=== PATIENT | male | born 1965 | race African-American/Black ===

== ENCOUNTER 2016-10-23 08:19 | Outpatient (CLI) | payer MEDICARE, MEDICAID ==
[~2016-10-23] VITALS: Ht 185.4 cm; Wt 105.0 kg
[2016-10-23] VITALS (8 sets, daily range): BP systolic 116–136; BP diastolic 67–82; PULSE 54–66; TEMP 98.1
[~2016-10-23 08:19] MED LIST: ASPIRIN 81M81 MG/TA2 PO; ASPIRIN E.C. 8181 MG PO; CATAPRES 0.1MG0.1 MG PO; FERROUS SU325 MG/TAB PO; FLEXERIL 1010 MG/TAB PO; FOLIC ACID 11 MG/TA1 PO; KLOR-CON M2020 MEQ PO; LANTUS100 U/ML SC; LASIX 40MG TABL40 MG PO; LASIX 80MG TABL80 MG PO; LIPITOR 80MG80 MG PO; NEPHROCAP PO; NITROSTAT0.4 MG/TAB SL; NORVASC 10MG10 MG PO; NORVASC 5MG5 MG/TAB PO; PERCOCET 325 MG1 TA2 PO; PLAVIX 75MG TAB75 MG PO; RENVELA800 MG PO; SENSIPAR60 MG PO; SODIUM BICARBO650 MG PO; TOPROL XL100 MG PO; TRIPHROCAPS SOFT1 MG PO; TYLENOL 500MG500 MG PO; ULTRAM 50MG TAB50 MG PO; VITAMIN C500 MG PO; VITAMIN D31000 IU PO; ZAROXOLYN 2.52.5 MG PO; ZEMPLAR2 MCG PO
[2016-10-23] MEDS ORDERED: AURYXIA1 GM PO (09:18)
[2016-10-23] MEDS ORDERED: PHOS LO PO (09:33)
[2016-10-23] MEDS ORDERED: ZESTRIL2.5 MG PO (09:34)
[2016-10-23] MEDS ORDERED: COREG 3.123.125 MG/T PO (09:35)
== END 2016-10-23 12:40 | disposition home or self-care (01) ==
LOC: EUO 08:19
DX: N18.6 End stage renal disease (principal); T82.838A Hemorrhage due to vascular prosthetic devices, implants and grafts, initial encounter; I82.611 Acute embolism and thrombosis of superficial veins of right upper extremity; I10 Essential (primary) hypertension; I25.10 Atherosclerotic heart disease of native coronary artery without angina pectoris; Z99.2 Dependence on renal dialysis
CPT/HCPCS: J2250; J3010; Q9967

== ENCOUNTER 2016-10-29 05:32 | Inpatient (IN) | payer MEDICARE, MEDICAID ==
[~2016-10-29] VITALS: Ht 185.4 cm; Wt 116.3 kg
[~2016-10-29 05:32] MED LIST changes: +AURYXIA1 GM PO; +COREG 3.123.125 MG/T PO; +PHOS LO PO; +ZESTRIL2.5 MG PO
[2016-10-29 08:26] VITALS: BP 115/64; PULSE 58; TEMP 97.8
[2016-10-29 08:41] VITALS: BP 115/64; PULSE 58; TEMP 97.8
[2016-10-29 10:06] LABS: BASO % 1.1 % (0.0-2.0); EOS # 0.1 (0.0-0.7); EOS % 2.7 % (0-4.0); GRAN # 2.2 (1.4-6.5); GRAN % 60.3 % (42.2-75.2); HEMOGLOBIN 9.3 g/dl (13.5-18.0); LYMPH # 1.1 (1.2-3.4); MEAN CELL VOLUME 100 fl (80.0-100.0); MEAN CORPUSCULAR HEMOGLOBIN 32 pg (27.0-31.0); MEAN CORPUSCULAR HGB CONC 32 g/dl (33.0-37.0); MEAN PLATELET VOLUME 9.8 fl (7.4-10.4); MONO # 0.2 (0.1-0.6); MONO % 4.9 % (1.7-9.3); PLATELET COUNT 126 K/mm3 (130-400); RED BLOOD COUNT 2.89 M/mm3 (4.20-5.60); REDCELL DISTRIBUTION WIDTH-CV 13.9 % (11.5-14.5); WHITE BLOOD COUNT 3.7 K/mm3 (4.8-10.8)
[2016-10-29 10:20] LABS: CALCIUM 7.4 mg/dL (8.4-10.2); POTASSIUM 4.2 mmol/L (3.4-5.0)
[2016-10-29 10:22] LABS: CREATININE, serum 8.38 mg/dL (0.66-1.25)
[2016-10-29 11:23] VITALS: BP 130/51; PULSE 77; TEMP 98.6
[2016-10-29 15:40] VITALS: BP 135/71; PULSE 72; TEMP 98.3
[2016-10-29 19:41] VITALS: BP 119/58; PULSE 69; TEMP 98.6
[2016-10-30] VITALS (14 sets, daily range): BP systolic 117–144; BP diastolic 58–79; PULSE 54–73; TEMP 97.9–98.2
[2016-10-30 06:40] LABS: MEAN CELL VOLUME 102 fl (80.0-100.0); MEAN CORPUSCULAR HGB CONC 32 g/dl (33.0-37.0); MEAN PLATELET VOLUME 9.8 fl (7.4-10.4); PLATELET COUNT 129 K/mm3 (130-400); RED BLOOD COUNT 2.83 M/mm3 (4.20-5.60); REDCELL DISTRIBUTION WIDTH-CV 13.8 % (11.5-14.5); WHITE BLOOD COUNT 3.5 K/mm3 (4.8-10.8)
[2016-10-30 06:41] LABS: HEMATOCRIT 28.8 % (42.0-52.0); HEMOGLOBIN 9.2 g/dl (13.5-18.0); MEAN CORPUSCULAR HEMOGLOBIN 33 pg (27.0-31.0)
[2016-10-30 06:51] LABS: PROTHROMBIN TIME 10.8 SECONDS (9.7-12.8)
[2016-10-30 06:52] LABS: POTASSIUM 4.1 mmol/L (3.4-5.0)
[2016-10-30 06:54] LABS: PARTIAL THROMBOPLASTIN TIME 32.4 SECONDS (26.0-37.0)
[2016-10-30 06:56] LABS: CREATININE, serum 7.85 mg/dL (0.66-1.25)
[2016-10-31 03:43] VITALS: BP 134/76; PULSE 70; TEMP 98.3
[2016-10-31 06:55] LABS: BASO % 0.6 % (0.0-2.0); EOS # 0.1 (0.0-0.7); EOS % 2.3 % (0-4.0); GRAN # 3.3 (1.4-6.5); GRAN % 69.5 % (42.2-75.2); LYMPH # 0.9 (1.2-3.4); LYMPH % 19.1 % (20.0-51.0); MEAN CELL VOLUME 102 fl (80.0-100.0); MEAN CORPUSCULAR HGB CONC 32 g/dl (33.0-37.0); MEAN PLATELET VOLUME 10.1 fl (7.4-10.4); MONO # 0.4 (0.1-0.6); MONO % 8.3 % (1.7-9.3); PLATELET COUNT 152 K/mm3 (130-400); RED BLOOD COUNT 3.14 M/mm3 (4.20-5.60); REDCELL DISTRIBUTION WIDTH-CV 13.9 % (11.5-14.5); WHITE BLOOD COUNT 4.8 K/mm3 (4.8-10.8)
[2016-10-31 07:01] LABS: HEMATOCRIT 31.9 % (42.0-52.0); HEMOGLOBIN 10.2 g/dl (13.5-18.0); MEAN CORPUSCULAR HEMOGLOBIN 32 pg (27.0-31.0)
[2016-10-31 07:11] LABS: CALCIUM 7.6 mg/dL (8.4-10.2); POTASSIUM 4.5 mmol/L (3.4-5.0)
[2016-10-31 07:14] LABS: CREATININE, serum 9.98 mg/dL (0.66-1.25)
[2016-10-31 12:10] VITALS: BP 144/81; PULSE 61; TEMP 98.6
== END 2016-10-31 12:45 | disposition home or self-care (01) | DRG 286 ==
LOC: MEDICAL 05:32
PROVIDERS: Internal Medicine; Internal Medicine Interventional Cardiology
PROC: 5A1D60Z (ICD-10-PCS; 2016-10-29)
PROC: B2111ZZ Fluoroscopy of Multiple Coronary Arteries using Low Osmolar Contrast (ICD-10-PCS; principal; 2016-10-30)
PROC: B2151ZZ Fluoroscopy of Left Heart using Low Osmolar Contrast (ICD-10-PCS; 2016-10-30)
DX: R07.89 Other chest pain (principal); N18.6 End stage renal disease; I12.0 Hypertensive chronic kidney disease with stage 5 chronic kidney disease or end stage renal disease; I25.10 Atherosclerotic heart disease of native coronary artery without angina pectoris; E11.22 Type 2 diabetes mellitus with diabetic chronic kidney disease; Z99.2 Dependence on renal dialysis; Z95.5 Presence of coronary angioplasty implant and graft; E83.39 Other disorders of phosphorus metabolism; D63.1 Anemia in chronic kidney disease; E11.42 Type 2 diabetes mellitus with diabetic polyneuropathy; Z98.84 Bariatric surgery status; Z95.1 Presence of aortocoronary bypass graft
CPT/HCPCS: C1760; C1769; C1887; C1894; J0882; J1644; J2250; J3010; Q9967

== ENCOUNTER → 2017-12-23 | Emergency (ER) | payer MEDICARE, MEDICAID ==
[~2017-12-23] VITALS: Ht 185.4 cm; Wt 109.1 kg
[2017-12-23 07:05] VITALS: BP 157/76; PULSE 59; TEMP 98.8
== END ==
LOC: COL.ER 06:58
DX: S06.0X9A Concussion with loss of consciousness of unspecified duration, initial encounter (principal); S60.221A Contusion of right hand, initial encounter; S80.01XA Contusion of right knee, initial encounter; I12.9 Hypertensive chronic kidney disease with stage 1 through stage 4 chronic kidney disease, or unspecified chronic kidney disease; E11.22 Type 2 diabetes mellitus with diabetic chronic kidney disease; N18.9 Chronic kidney disease, unspecified; Z99.2 Dependence on renal dialysis; Z79.82 Long term (current) use of aspirin; W22.8XXA Striking against or struck by other objects, initial encounter; W18.30XA Fall on same level, unspecified, initial encounter; Y92.009 Unspecified place in unspecified non-institutional (private) residence as the place of occurrence of the external cause

== ENCOUNTER 2018-01-15 03:59 | Emergency (ER) | payer MEDICARE, MEDICAID ==
[~2018-01-15] VITALS: Ht 185.4 cm; Wt 109.1 kg
[2018-01-15 04:03] VITALS: TEMP 98.8
[2018-01-15] MEDS ORDERED: CELEBREX 200MG200 MG PO (04:48)
[2018-01-15] MEDS ORDERED: NEURONTIN300 MG/CAP PO (04:48)
[2018-01-15] MEDS ORDERED: PHOS LO (04:49)
[2018-01-15] MEDS ORDERED: LIPITOR 80MG80 MG PO (04:49)
[2018-01-15 06:55] VITALS: BP 129/72; PULSE 70
== END 2018-01-15 07:15 | disposition home or self-care (01) ==
LOC: COL.ER 03:59
DX: R04.0 Epistaxis (principal); E11.22 Type 2 diabetes mellitus with diabetic chronic kidney disease; I12.0 Hypertensive chronic kidney disease with stage 5 chronic kidney disease or end stage renal disease; N18.6 End stage renal disease; E78.5 Hyperlipidemia, unspecified; Z95.1 Presence of aortocoronary bypass graft; Z79.02 Long term (current) use of antithrombotics/antiplatelets; Z79.82 Long term (current) use of aspirin

== ENCOUNTER 2018-01-18 12:15 | Emergency (ER) | payer MEDICARE, MEDICAID ==
[~2018-01-18] VITALS: Ht 185.4 cm; Wt 104.0 kg
[~2018-01-18 12:15] MED LIST changes: +CELEBREX 200MG200 MG PO; +NEURONTIN300 MG/CAP PO; +PHOS LO
[2018-01-18 12:21] VITALS: BP 135/69; TEMP 99.4
[2018-01-18 13:11] LABS: BASO % 0.6 % (0.0-2.0); EOS # 0.1 (0.0-0.7); EOS % 1.4 % (0-4.0); GRAN # 5.2 (1.4-6.5); GRAN % 74.2 % (42.2-75.2); LYMPH # 0.8 (1.2-3.4); LYMPH % 11.6 % (20.0-51.0); MEAN CELL VOLUME 102 fl (80.0-100.0); MEAN CORPUSCULAR HGB CONC 33 g/dl (33.0-37.0); MEAN PLATELET VOLUME 9.6 fl (7.4-10.4); MONO # 0.8 (0.1-0.6); MONO % 11.8 % (1.7-9.3); PLATELET COUNT 238 K/mm3 (130-400); REDCELL DISTRIBUTION WIDTH-CV 13.5 % (11.5-14.5)
[2018-01-18 13:12] LABS: HEMATOCRIT 27.6 % (42.0-52.0); MEAN CORPUSCULAR HEMOGLOBIN 33 pg (27.0-31.0)
[2018-01-18 13:13] LABS: INR 1.1 (0.8-3.0)
[2018-01-18 13:15] LABS: PARTIAL THROMBOPLASTIN TIME 36.2 SECONDS (26.0-37.0)
[2018-01-18 13:17] LABS: ALBUMIN 3.9 gm/dL (3.5-5.0); CALCIUM 7.8 mg/dL (8.4-10.2); POTASSIUM 4.1 mmol/L (3.4-5.0); TOTAL PROTEIN 7.4 gm/dL (6.4-8.2)
[2018-01-18 13:27] LABS: CREATININE, serum 4.63 mg/dL (0.66-1.25)
[2018-01-18 13:29] LABS: TROPONIN-I 0.018 ng/mL (0.000-0.034)
[2018-01-18] MEDS ORDERED: PROTONIX 40MG T40 MG PO (14:33)
[2018-01-18 14:45] VITALS: PULSE 76
== END 2018-01-18 14:45 | disposition home or self-care (01) ==
LOC: COL.ER 12:15
PROVIDERS: Emergency Medicine
DX: K29.70 Gastritis, unspecified, without bleeding (principal); I12.0 Hypertensive chronic kidney disease with stage 5 chronic kidney disease or end stage renal disease; E11.22 Type 2 diabetes mellitus with diabetic chronic kidney disease; N18.6 End stage renal disease; I25.10 Atherosclerotic heart disease of native coronary artery without angina pectoris; K21.9 Gastro-esophageal reflux disease without esophagitis; Z99.2 Dependence on renal dialysis; Z79.82 Long term (current) use of aspirin; Z79.02 Long term (current) use of antithrombotics/antiplatelets; Z95.5 Presence of coronary angioplasty implant and graft; Z90.49 Acquired absence of other specified parts of digestive tract; Z88.7 Allergy status to serum and vaccine

== ENCOUNTER 2018-11-24 16:05 | Emergency (ER) | payer MEDICARE, MEDICAID ==
[~2018-11-24] VITALS: Ht 185.4 cm; Wt 111.4 kg
[2018-11-24 16:35] LABS: BASO % 0.7 % (0.0-2.0); EOS # 0.1 (0.0-0.7); EOS % 2.4 % (0-4.0); GRAN # 2.4 (1.4-6.5); GRAN % 54.2 % (42.2-75.2); HEMOGLOBIN 11.3 g/dl (13.5-18.0); LYMPH # 1.2 (1.2-3.4); LYMPH % 27.6 % (20.0-51.0); MEAN CELL VOLUME 103 fl (80.0-100.0); MEAN CORPUSCULAR HEMOGLOBIN 33 pg (27.0-31.0); MEAN CORPUSCULAR HGB CONC 32 g/dl (33.0-37.0); MEAN PLATELET VOLUME 8.6 fl (7.4-10.4); MONO # 0.7 (0.1-0.6); MONO % 14.9 % (1.7-9.3); PLATELET COUNT 165 K/mm3 (130-400); RED BLOOD COUNT 3.41 M/mm3 (4.20-5.60); REDCELL DISTRIBUTION WIDTH-CV 15.1 % (11.5-14.5)
[2018-11-24 16:44] LABS: HEMATOCRIT 35.2 % (42.0-52.0)
[2018-11-24 16:48] LABS: ALANINE AMINOTRANSFERASE 11 U/L (21-72); ALBUMIN 4.2 gm/dL (3.5-5.0); ALKALINE PHOSPHATASE 65 U/L (50-136); ANION GAP 10 mmol/L (7-16); AST,SGOT 21 U/L (15-37); BILIRUBIN,TOTAL 0.8 mg/dL (0.0-1.0); BLOOD UREA NITROGEN 15 mg/dL (9-20); CALCIUM 9.5 mg/dL (8.4-10.2); CARBON DIOXIDE 37 mmol/L (22-30); CHLORIDE 90 mmol/L (98-107); GLUCOSE 205 mg/dL (74-106); LIPASE 315 U/L (23-300); SODIUM 137 mmol/L (137-145); TOTAL PROTEIN 7.5 gm/dL (6.4-8.2)
[2018-11-24 16:54] LABS: C-REACTIVE PROTEIN < 0.5 mg/dL (0.0-0.9); CREATININE, serum 6.04 (0.66-1.25)
[2018-11-24 16:57] LABS: TROPONIN-I 0.034 ng/mL (0.000-0.035)
[2018-11-24 17:18] VITALS: BP 144/79; PULSE 73; TEMP 98.2
== END 2018-11-24 17:28 | disposition home or self-care (01) ==
LOC: COL.ER 16:05
PROVIDERS: Emergency Medicine
DX: R07.89 Other chest pain (principal); I12.9 Hypertensive chronic kidney disease with stage 1 through stage 4 chronic kidney disease, or unspecified chronic kidney disease; N18.9 Chronic kidney disease, unspecified; Z98.84 Bariatric surgery status; Z90.49 Acquired absence of other specified parts of digestive tract; Z99.2 Dependence on renal dialysis; Z79.82 Long term (current) use of aspirin; Z79.02 Long term (current) use of antithrombotics/antiplatelets

== ENCOUNTER → 2018-11-24 | Outpatient (CLI) | payer MEDICARE, MEDICAID ==
[~2018-11-24] MED LIST changes: +PROTONIX 40MG T40 MG PO
== END ==
LOC: ZCOL.LAB 16:33
DX: E11.9 Type 2 diabetes mellitus without complications (principal); N48.9 Disorder of penis, unspecified

== ENCOUNTER 2019-03-01 02:51 | Observation (INO) | payer MEDICARE ==
[~2019-03-01] VITALS: Ht 185.4 cm; Wt 115.2 kg
[2019-03-01 03:17] LABS: BASO % 0.8 % (0.0-2.0); EOS # 0.1 (0.0-0.7); EOS % 2.1 % (0-4.0); GRAN # 3.5 (1.4-6.5); LYMPH % 19.3 % (20.0-51.0); MEAN CELL VOLUME 105 fl (80.0-100.0); MEAN CORPUSCULAR HGB CONC 32 g/dl (33.0-37.0); MEAN PLATELET VOLUME 9.5 fl (7.4-10.4); MONO # 0.6 (0.1-0.6); MONO % 11.4 % (1.7-9.3); PLATELET COUNT 172 K/mm3 (130-400); RED BLOOD COUNT 2.77 M/mm3 (4.20-5.60); REDCELL DISTRIBUTION WIDTH-CV 14.6 % (11.5-14.5)
[2019-03-01 03:19] LABS: HEMATOCRIT 29.2 % (42.0-52.0); HEMOGLOBIN 9.3 g/dl (13.5-18.0); MEAN CORPUSCULAR HEMOGLOBIN 34 pg (27.0-31.0)
[2019-03-01 03:24] LABS: PROTHROMBIN TIME 11.1 SECONDS (9.7-12.8)
[2019-03-01 03:26] LABS: BILIRUBIN,TOTAL 0.4 mg/dL (0.0-1.0); CALCIUM 8.7 mg/dL (8.4-10.2); CREATININE, serum 8.02 (0.66-1.25); POTASSIUM 4.1 mmol/L (3.4-5.0); TOTAL PROTEIN 7.1 gm/dL (6.4-8.2)
[2019-03-01] MEDS ORDERED: ROCALTROL0.5 MCG PO (03:41)
[2019-03-01] MEDS ORDERED: IMDUR 30MG30 MG/TAB PO (03:41)
[2019-03-01] MEDS ORDERED: LAMISIL250 M1 (03:42)
[2019-03-01] MEDS ORDERED: ASPIRIN 32325 MG/TAB PO (03:43)
[2019-03-01 03:45] LABS: TROPONIN-I 0.389 ng/mL (0.000-0.035)
[2019-03-01 05:07] VITALS: BP 176/94; PULSE 99; TEMP 98.1
--- NOTE | 2019-03-01 07:31 | NUR ---
report from Lila WALTERS.
[2019-03-01 07:37] VITALS: BP 146/84; PULSE 79; TEMP 97.8
--- NOTE | 2019-03-01 11:57 | NUR ---
MICHAEL met with the patient and the patient's , Norberto (ph#[phone]), to discuss discharge plan. The patient lives in [place] with his and two sons. He reports independence with ADLs and does not have any DME. The patient's PCP is Dr. Thomas Joseph, but he will be switching to Dr. Steff Rain. He receives his medications at the [facility] in [place]. He reports occasional difficulties affording his meds. MICHAEL discussed speaking to his PCP about less inexpensive versions, free samples, and the [employer] angelique. The patient does not have advanced directives in EMR, but he states that he does have them completed and that his is his DPOA-HC. The patient plans to return home with his family upon discharge. No additional needs at this time.
[2019-03-01 12:42] VITALS: BP 126/75; PULSE 66; TEMP 98.1
--- NOTE | 2019-03-01 15:05 | NUR ---
REPORTED LAB VALUES TO HOSPITALIST MAXINE WHO WILL UPDATE YADIRA ZENG. ANDNOTIFIED DR. HERRMANN NO NEW ORDERS.
[2019-03-01 16:00] VITALS: BP 128/76; PULSE 69; TEMP 98.2
[2019-03-01] MEDS ORDERED: NORVASC 5MG5 MG/TAB PO (17:23)
--- NOTE | 2019-03-01 17:26 | NUR ---
PT TO DISSCHARGE HOME ON HOME MEDICATIONS FOLLOW UP WITH MARY IN [place].
--- NOTE | 2019-03-01 17:57 | NUR ---
PT DISCHARGED HOME, WILL MAKE OWN APPTS FOR FOLLOW UP TOMMORROW.
== END 2019-03-01 17:58 | disposition home or self-care (01) ==
LOC: COL.ER 02:51 → SURG 03:48
PROVIDERS: Emergency Medicine; ADMIT Student in an Organized Health Care Education/Training Program
DX: R07.9 Chest pain, unspecified (principal); I25.10 Atherosclerotic heart disease of native coronary artery without angina pectoris; I25.2 Old myocardial infarction; I13.2 Hypertensive heart and chronic kidney disease with heart failure and with stage 5 chronic kidney disease, or end stage renal disease; N18.6 End stage renal disease; I50.9 Heart failure, unspecified; M19.90 Unspecified osteoarthritis, unspecified site; G89.29 Other chronic pain; M54.9 Dorsalgia, unspecified; E78.5 Hyperlipidemia, unspecified; Z99.2 Dependence on renal dialysis; Z95.1 Presence of aortocoronary bypass graft; Z79.82 Long term (current) use of aspirin; Z79.02 Long term (current) use of antithrombotics/antiplatelets; Z88.7 Allergy status to serum and vaccine; Z86.73 Personal history of transient ischemic attack (TIA), and cerebral infarction without residual deficits
CPT/HCPCS: C9113; J2270

== ENCOUNTER 2019-05-10 13:14 | Day surgery (SDC) | payer MEDICARE, MEDICAID ==
[~2019-05-10] VITALS: Ht 182.9 cm; Wt 116.5 kg
[~2019-05-10 13:14] MED LIST changes: +ASPIRIN 32325 MG/TAB PO; +IMDUR 30MG30 MG/TAB PO; +LAMISIL250 M1; +ROCALTROL0.5 MCG PO
[2019-05-10] MEDS ORDERED: PHOS LO PO (13:44)
[2019-05-10] MEDS ORDERED: PROTONIX 40MG T40 MG PO (13:45)
[2019-05-10] MEDS ORDERED: ROCALTROL0.5 MCG PO (13:45)
[2019-05-10] MEDS ORDERED: AURYXIA1 GM PO (13:45)
[2019-05-10] MEDS ORDERED: NORVASC 5MG5 MG/TAB PO (13:45)
[2019-05-10] MEDS ORDERED: NEURONTIN300 MG/CAP PO (13:46)
[2019-05-10] MEDS ORDERED: COREG 25MG25 MG/TAB PO (13:46)
[2019-05-10] MEDS ORDERED: LIPITOR 80MG80 MG PO (13:47)
[2019-05-10] MEDS ORDERED: TRIPHROCAPS SOFT1 MG PO (13:47)
[2019-05-10] MEDS ORDERED: CELEBREX 200MG200 MG PO (13:47)
[2019-05-10] MEDS ORDERED: PLAVIX 75MG TAB75 MG PO (13:48)
[2019-05-10] MEDS ORDERED: ZESTRIL2.5 MG PO (13:48)
[2019-05-10] MEDS ORDERED: NITROSTAT0.4 MG/TAB SL (13:48)
[2019-05-10] MEDS ORDERED: VITAMIN D250 MCG PO (13:49)
[2019-05-10 13:53] VITALS: BP 136/87; PULSE 62; TEMP 98.5
[2019-05-10 15:05] VITALS: BP 114/72; PULSE 62; TEMP 98.6
--- NOTE | 2019-05-10 15:05 | NUR ---
Patient arrives to [facility] via cart post-procedure, accompanied by Endo RN Donavon. He tolerated the procedure well. Bedside report is received. He is drowsy, but oriented. He ambulates with standby assist to the chair in the room. Monitoring is applied - VSS and WNL on room air. Chair is reclined and lights are dimmed for comfort. He is given warm blankets. His is at the bedside.
[2019-05-10 15:15] VITALS: BP 117/75; PULSE 60
--- NOTE | 2019-05-10 15:15 | NUR ---
Patient is awake upon entering room. VSS and WNL on room air. Offered and receives juice and a muffin to eat.
[2019-05-10 15:30] VITALS: BP 123/78; PULSE 70
--- NOTE | 2019-05-10 15:40 | NUR ---
Dr. Marie is at the bedside at this time.
--- NOTE | 2019-05-10 15:51 | NUR ---
Discharge criteria has been met. Discharge instructions discussed with the patient and his . They deny any questions and verbalize understanding. PIV removed with catheter intact and hemostasis achieved. He is changing to his clothing with his 's assistance.
--- NOTE | 2019-05-10 16:00 | NUR ---
Patient is escorted to the exit via wheelchair by staff. He is discharged to home with ride in private vehicle at 1600.
[2019-05-10 17:08] VITALS: BP 119/73; PULSE 56
== END 2019-05-10 16:00 | disposition home or self-care (01) ==
LOC: SDCO 13:14
DX: R10.13 Epigastric pain (principal); R19.7 Diarrhea, unspecified; K57.30 Diverticulosis of large intestine without perforation or abscess without bleeding; Z98.84 Bariatric surgery status; Z79.01 Long term (current) use of anticoagulants; Z79.82 Long term (current) use of aspirin; I25.10 Atherosclerotic heart disease of native coronary artery without angina pectoris; I10 Essential (primary) hypertension; K21.9 Gastro-esophageal reflux disease without esophagitis; E66.9 Obesity, unspecified; Z86.73 Personal history of transient ischemic attack (TIA), and cerebral infarction without residual deficits; I25.2 Old myocardial infarction
CPT/HCPCS: J2704; J7120

== ENCOUNTER → 2019-05-23 | Outpatient (CLI) | payer MEDICARE, MEDICAID ==
[~2019-05-23] MED LIST changes: +COREG 25MG25 MG/TAB PO; +VITAMIN D250 MCG PO
== END ==
LOC: COL.RAD 12:14
DX: I51.7 Cardiomegaly (principal); Z95.1 Presence of aortocoronary bypass graft

== ENCOUNTER 2021-05-18 10:00 | Emergency (ER) | payer MEDICARE, MEDICAID ==
[~2021-05-18] VITALS: Ht 182.9 cm; Wt 90.9 kg
[~2021-05-18 10:00] MED LIST changes: -COREG 25MG25 MG/TAB PO; +COREG12.5 MG PO
[2021-05-18 10:20] VITALS: TEMP 98.9
[2021-05-18] MEDS ORDERED: ASPIRIN 81M81 MG/TA2 PO (10:35)
[2021-05-18] MEDS ORDERED: CORDARONE200 MG/TAB PO (10:36)
[2021-05-18] MEDS ORDERED: EUTHYROX100 MCG PO (10:36)
[2021-05-18] MEDS ORDERED: IMDUR 30MG30 MG/TAB PO (10:37)
[2021-05-18] MEDS ORDERED: MIRAPEX 0.0.125 MG/T PO (10:38)
[2021-05-18] MEDS ORDERED: ELIQUIS 5MG PO (10:39)
[2021-05-18] MEDS ORDERED: REMERON 15M15 MG/TA1 PO (10:39)
[2021-05-18] MEDS ORDERED: NORCO 325 MG-101 TAB PO (10:40)
[2021-05-18] MEDS ORDERED: PHOS LO PO (10:41)
[2021-05-18] MEDS ORDERED: PERCOCET 325 MG1 TA2 PO (11:50)
[2021-05-18 11:56] VITALS: BP 81/53; PULSE 68
== END 2021-05-18 11:58 | disposition home or self-care (01) ==
LOC: COL.ER 10:00
DX: S70.01XA Contusion of right hip, initial encounter (principal); R07.81 Pleurodynia; N18.6 End stage renal disease; Z99.2 Dependence on renal dialysis